=== PATIENT | female | born 1995 | race Hispanic/Latino ===

== ENCOUNTER 2016-09-23 07:03 | Inpatient (IN) | payer OTHER ==
[~2016-09-23] VITALS: Ht 160 cm; Wt 74.4 kg
[~2016-09-23 07:03] MED LIST: POTA10TA PO
[2016-09-23] MEDS ORDERED: Oxytocin 30 Units/500 mL LR 30 UNITS in IV Premix 1 EACH IV PRN ×2 (07:25→12:00)
[2016-09-23] MEDS ORDERED: Carboprost 250 mCg/mL Inj IM PRN ×2 (07:25→12:00)
[2016-09-23] MEDS ORDERED: fentaNYL-PF 50 mCg/mL 2 mL Inj IVPUSH PRN (07:25)
[2016-09-23] MEDS ORDERED: Sodium Chloride LOK Flush 10 mL Syringe IVFLUSH PRN (07:25)
[2016-09-23] MEDS ORDERED: Ondansetron 2 mg/mL 2 mL Inj IVPUSH PRN ×2 (07:25→08:00)
[2016-09-23] MEDS ORDERED: Methylergonovine 0.2 mg/mL Inj IM PRN ×2 (07:25→12:00)
[2016-09-23] MEDS ORDERED: Hemorrhage Kit, Post Partum XX ONE ×2 (07:25→12:00)
[2016-09-23] MEDS ORDERED: Oxytocin 10 Unit/mL Inj IM PRN ×2 (07:25→12:00)
[2016-09-23 07:56] LABS: Mean Corpuscular Hemoglobin 28.2 pg (27.0-35.0); Mean Corpuscular Volume 86.7 fL (81-100)
[2016-09-23] MEDS ORDERED: Lactated Ringer's 500 ML IV ONE (07:56)
[2016-09-23] MEDS: Lactated Ringer's 1,000 ML IV SCH ×5 (07:56→23:56)
[2016-09-23] MEDS ORDERED: EPHEDrine Sulfate 50 mg/mL Inj IVPUSH PRN (08:00)
[2016-09-23] MEDS ORDERED: fentaNYL 2 mCg/mL-Bupiv 0.125% 100 ML EPIDURAL SCH (08:00)
[2016-09-23] MEDS ORDERED: Atropine 1 mg/10 mL (Code) Syringe IVPUSH PRN (08:00)
[2016-09-23] MEDS: Sodium Chloride LOK Flush 10 mL Syringe IVFLUSH SCH ×2 (08:30→16:30)
--- NOTE | 2016-09-23 08:51 | PCM.HPANE ---
Patient Data Surgeon Admitting Provider:Cami Payne MD Attending Provider:Cami Payne MD Primary Care Physician:Cami Payne MD Other Provider:Damian Wilson Anesthesia Reason for Visit Term Labor TERM LABOR Ht/WT & BMI Body Mass Index Allergies Coded Allergies: No Known Allergies (Unverified , 09/23/16) Medications Active Scripts Potassium Chloride ER (K-Tab)10 Meq [id number] Meq PO BID #30 TABLET Ref 0 Prov:Cami Payne MD 08/22/16 History Smoking Status: Never Smoker Stop/Bang Risk Assessment Category Category 1A: Patient has history of documented sleep apnea, and HAS NOT received any narcotic, sedative or anesthesia administration during this stay. Category 1B: Patient has history of documented sleep apnea, and HAS received any narcotic , sedative or anesthesia administration during this stay Category 2: Patient has SUSPECTED Obstructive Sleep Apnea, and HAS received any narcotic , sedative or anesthesia administration during this stay. Category 3: Patient has SUSPECTED Obstructive Sleep Apnea and HAS NOT received narcotic, sedative or anesthesia administration during this stay. Category 4: Outpatient in Procedural Areas with known sleep apnea or who screen positive for High Risk via the STOP/BANG questionnaire. Exam Exam General Appearance: Alert, Oriented X3, Cooperative, No Acute Distress HEENT/AIRWAY: MP 3, Mouth Opening (small) Lungs: Clear to Auscultation Heart: Exam Unremarkable Meds/Labs/Diagnostics Labs Test 09/23/16 07:40 Plan Impression Patient chart reviewed, patient interviewed and anesthestic plan with risks, benefits, and alternatives discussed, and informed consent obtained. ASA Physical Status: ASA2 Mod Systemic Disease Anesthetic Plan: Epidural Bene/Risks/Altern/Consents: Yes (via artificial intelligence specialist) HP Complete Prior to Induction: Yes Landry Velasquez MD Sep 23, 2016 07:56
[2016-09-23] MEDS: Lactated Ringer's 1,000 ML IV PRN ×2 (09:35→09:36)
--- NOTE | 2016-09-23 15:10 | HP ---
[address] [address] HISTORY AND PHYSICAL PATIENT: JARED CUENCA : 1995 MR#: [id number] ADMIT: 09/23/2016 JOB ID: [id number] HISTORY OF PRESENT ILLNESS: This is a 20-year-old female. She is 2, para 1, at 40 weeks . She presents to [facility] for active labor. She was south every 2-3 minutes. The heart tracing was category 1. She was examined that she was 6 cm dilated with bulging membranes. No leaking of fluid. This is a patient having routine care at [facility]. She declined allergy to medications. PAST MEDICAL HISTORY: She declined. PAST SURGICAL HISTORY: She declined. OBSTETRICAL HISTORY: She had one vaginal delivery which is a forceps delivery with a 9 pound plus baby. GYNECOLOGIC HISTORY: Was not complicated. SOCIAL HISTORY: She is not smoking. She does not drink alcohol and declined drug usage. PHYSICAL EXAMINATION: She is afebrile. Her vitals normal. Cardiac: RR, no murmur. Pulmonary: Bilaterally clear. Abdomen: Soft, , nontender. heart tracing category 1. She has regular contractions which she feels pain and require for epidural. Cervix examination was mentioned about 6 cm dilated with a bulging membrane. Extremities nontender. ASSESSMENT AND PLAN: A 20-year-old female, 2, para 1, at 40 weeks active labor. 1. We will admit her to [facility]. 2. She is GBS negative. No antibiotic needed for prophylaxis. 3. The patient asked for epidural. Will consult anesthesia for epidural. 4. The patient has a history of large baby and forceps delivery. 5. We will monitor labor progress and expect vaginal delivery.
[2016-09-23] MEDS ORDERED: Acetaminophen IV 1,000 mg IV ONE (18:45)
--- NOTE | 2016-09-23 18:51 | PCM.ANEP2 ---
Post Anesthesia Evaluation ASA/CMS Post Anesthesia VS in Patient's Normal Range?: Yes Resp Stable; Airway Patent?: Yes CV Function & Hydration Stable: Yes Mental Status Recovered?: Yes Pain control Satisfactory?: Yes N/V Control Satisfactory?: Yes Additional Comments Patient sitting up in bed smiling resting comfortably. No c/o of headache at this time. Landry Velasquez MD Sep 23, 2016 18:51
[2016-09-24] MEDS: Sodium Chloride LOK Flush 10 mL Syringe IVFLUSH SCH ×3 (00:30→16:30)
[2016-09-24] MEDS: Lactated Ringer's 1,000 ML IV SCH ×3 (04:00→12:00)
[2016-09-24 06:21] LABS: Mean Corpuscular Hemoglobin 28.5 pg (27.0-35.0); Mean Corpuscular Volume 87.8 fL (81-100)
[2016-09-24] MEDS ORDERED: oxyCODONE-Acetamin 5-325 mg Tablet PO PRN (11:00)
[2016-09-24] MEDS ORDERED: DOCU-41 PO (11:05)
[2016-09-24] MEDS ORDERED: FERR-83 PO (11:05)
[2016-09-24] MEDS ORDERED: ASCO250T7 PO (11:05)
[2016-09-24] MEDS ORDERED: OXYC1TAB24 PO (11:05)
[2016-09-24] MEDS ORDERED: IBUP-1827 PO (11:05)
--- NOTE | 2016-09-24 11:09 | PCM.DIOB ---
Obstetrical Disch Instruction Dates of Hospitalization Date of Hospital Admission Sep 23, 2016 at 07:16 Providers Admitting Physician: Cami Payne MD Primary Care Physician: Cami Payne MD Attending Physician: Cami Payne MD Additional Instructions Discharge Instructions Discharge diagnosis: Status post normal vaginal delivery Post Anemia Spinal Headache after epidural. Disposition: home. Discharge Condition: stable. Diet Discharge Diet: No restrictions Activity Discharge Activity-General: Pelvic Rest for 6 weeks, Be up and about, Balance rest and activity, No lifting >10 pounds for 4-6 weeks Dressing and Incisional Care Hygiene: May shower, Perineal care, Sitz bath Follow Up Plan Follow-up Provider (F9): Cami Payne MD Follow-up appointment: Weeks (2 ) or sooner if needed. Call your provider for: Fever or Chills, Shortness of breath, Heavy vaginal bleeding, Heavy bleeding, Epigastric pain, Excessive constipation, Vaginal discomfort, Red painful breasts, Other (headache, change in vision, leg swelling in one leg more than the other, change in color or painful legs. ) Cami Payne MD Sep 24, 2016 11:09
--- NOTE | 2016-09-24 11:13 | PCM.DC.OB ---
Obstetrical Discharge Summary Date of Service Sep 24, 2016 Date of hospital admission Sep 23, 2016 at 07:16 Date of Discharge: Sep 24, 2016 Providers Admitting Physician: Andrae Ly MD Primary Care Physician: Andrae Ly MD Attending Physician: Andrae Ly MD Hospital Course: Discharge diagnosis: Status post normal vaginal delivery Post Anemia Headache related to epidural. Problems: Hospital Course: Patient is a 20 year old female G 2now P2002 was admitted at weeks day for active labor. Status post normal vaginal delivery on 09/23/16, see delivery note for details. COMPLICATED WITH: 1. History of forceps assisted vaginal delivery in first . OUTCOME: Male infant, apgars 9 and 10 at 1 and 5 minutes respectively. Weight 3603 ( 7lb 15oz) DISCHARGE DAY EXAM: day number 1, patient is ambulating, tolerating regular diet without nausea or vomiting and voiding without difficulty. Pain was well controlled. No chest pain, no change in vision. Headache when setting up , improves with lying down and with pain medications. VS: reviewed and stable. 104/62, 83, 17, 36.6 General: Alert, Oriented X3 Lungs: Clear to Auscultation, Clear to Percussion Heart: Regular Rate/Rhythm, Normal S1, Normal S2 Abdomen: Fundus firm Extremities: No tenderness/swelling, Edema 1+ Lochia: normal. LABS: Laboratory Tests 72 Hours Test 09/23/16 07:40 09/24/16 06:00 White Blood Count 6.9th/mm3 (3.8-10.1) 8.8th/mm3 (3.8-10.1) Red Blood Count 4.29mil/mm3 (3.90-5.20) 3.68mil/mm3 (3.90-5.20) Hemoglobin 12.1g/dL (12.0-15.6) 10.5g/dL (12.0-15.6) Hematocrit 37.2% (35.0-46.0) 32.3% (35.0-46.0) Mean Corpuscular Volume 86.7fL (81-100) 87.8fL (81-100) Mean Corpuscular Hemoglobin 28.2pg (27.0-35.0) 28.5pg (27.0-35.0) Mean Corpuscular Hemoglobin Concent 32.5% (32.0-37.0) 32.5% (32.0-37.0) Red Cell Distribution Width 14.2% (12.3-15.4) 14.3% (12.3-15.4) Platelet Count 180bil/L (150-400) 167bil/L (150-400) labs: Apositive, Rubella immune, HIB (NR) , HepsAg (NR), RPR (NR), 1hr DM screen negatuve (99), Pap smear WNL 02/29/2016, GC/CT screen negative 02/29/2016, Quad screen negative. Disposition: home. Discharge Condition: stable. Diet Discharge Diet: No restrictions Activity Discharge Activity-General: Pelvic Rest for 6 weeks, Be up and about, Balance rest and activity, No lifting >10 pounds for 4-6 weeks Dressing and Incisional Care Hygiene: May shower, Perineal care, Sitz bath Follow Up Plan Follow-up Provider (F9): Andrae Ly MD Follow-up appointment: Weeks (2 ) or sooner if needed. Call your provider for: Fever or Chills, Shortness of breath, Heavy vaginal bleeding, Heavy bleeding, Epigastric pain, Excessive constipation, Vaginal discomfort, Red painful breasts, Other (headache, change in vision, leg swelling in one leg more than the other, change in color or painful legs. ) Ascorbic Acid (Vitamin C) 250 Mg Tab.chew 500 MG PO DAILY Prescribed by: ANDRAE LY MD Docusate Sodium (Colace) 100 Mg Capsule 100 MG PO DAILY Prescribed by: ANDRAE LY MD Ferrous Sulfate (Ferrous Sulfate) 325 Mg Tablet 325 MG PO DAILY Prescribed by: ANDRAE LY MD Ibuprofen (Ibuprofen) 600 Mg Tablet 600 MG PO Q6H PRN PRN For Mild Pain Prescribed by: ANDRAE LY MD Potassium Chloride ER (K-Tab) 10 Meq Tablet 10 MEQ PO BID Prescribed by: ANDRAE LY MD oxyCODONE-Acetaminophen 5-325 mg (oxyCODONE-Acetaminophen 5-325 mg) 1 Each Tablet 1 TAB PO Q4H PRN PRN For Pain Prescribed by: OMMD Elmer HAMM Omaima A MD Sep 24, 2016 11:13
[2016-09-24 17:32] VITALS: BP 109/85; PULSE 87; RESP 16
--- NOTE | 2016-09-24 17:38 | OP ---
[address] [address] OPERATIVE REPORT PATIENT: JARED CUENCA : 1995 MR#: [id number] ADMIT: 09/23/2016 JOB ID: [id number] DATE OF SURGERY: 09/23/2016 SURGEON: Janneth Clayton MD PREOPERATIVE DIAGNOSIS(ES): POSTOPERATIVE DIAGNOSIS(ES): This is a 30-year-old female, she is 2, para 2 now, at 40 weeks presented to [facility] for active labor. She was admitted when she was 6 cm dilated with bulging membranes, category one tracing. She got epidural for pain management which is controlling her pain well. I examined her after the epidural and it was noted she was 9.5 cm dilated, with bulging membranes. Artificial rupture of membrane was performed with clear fluid. At that time, it was noted she was LOP position with category one tracing and at that time plan was observe progress of labor. The patient had regular contractions and reassuring heart tracing and she progressed to full dilation and had good urge to push. She had a good effort to push and eventually the baby delivered at OCTAVIA position. There was one nuchal cord which was loose and did not need cut or reduce. There was presenting part at delivery of the head together with her left hand. Then shoulder and chest delivered without difficulty. The was placed on mother's chest. Delayed cord clamping was performed after the pulsation disappeared about 1 minute after delivery. Regular cord blood collected. Placenta delivered spontaneously completely and examined with a three-vessel cord. The uterus well contracted after delivery of the placenta. The perineum examined with no laceration. The EBL during the delivery was 200 cc. The scores were 9 and 9. The weight was not available at dictation. MTDD
--- NOTE | 2016-09-24 20:51 | PROCED ---
[address] [address] PROCEDURE NOTE PATIENT: JARED CUENCA : 1995 MR#: [id number] ADMIT: 09/23/2016 JOB ID: [id number] DATE OF SERVICE: PREOPERATIVE DIAGNOSIS(ES): POSTOPERATIVE DIAGNOSIS(ES): SURGEON: Kyle Austin MD. PROCEDURE: Epidural blood patch. INDICATION: Postdural puncture headache following epidural. COMPLICATIONS: None. PROCEDURE NOTE: The patient was evaluated this a.m. following an uncomplicated epidural placement yesterday that resulted in a spontaneous vaginal . The patient reported a headache yesterday and was evaluated by one of my partners, who felt that the headache did not have a strong postural component and most likely not a dural puncture headache given that there was no known dural puncture during the procedure. I evaluated the patient this morning. She complained of a headache that was postural in nature in the front of her head. We decided to try some oral medication and watch it and it did not resolve, and so I consented her for an epidural blood patch. The patient was positioned in the sitting position. The back was sterilely prepped with chlorhexidine gluconate and draped in a sterile fashion. The site of the previous epidural placement was easily identified. Area was injected with local anesthetic. Then, a 17-gauge, Tuohy needle was advanced with crisp loss of resistance at approximately 4 cm. There was no clear evidence of CSF return at that point. With the assistance of a nurse then, 20 cc total of blood was sterilely drawn from an existing IV in the right AC. This was injected in aliquots as tolerated by the patient. Total volume that she was able to tolerate was about 18 mm of blood. At this point, she complained of back pain and pain in the hips radiating around to her abdomen. The needle was re-styletted and the needle was withdrawn. The patient was placed in the supine position and reported that her headache was much improved. The patient and nurse were instructed to have the patient remain supine or on her side but in a flat position for 30 minutes post procedure. At that point, she can sit up and should be appropriate for discharge to home. I also instructed the patient and her that if they go home and have a repeat of this headache that they are welcome to return to the [facility], where they can be evaluated by an anesthesiologist again. PROCEDURE: Epidural blood patch. COMPLICATIONS: None. The result was improvement of headache.
== END 2016-09-24 18:45 | disposition home or self-care (01) | DRG 775 ==
LOC: FBCO 07:03 → FBC 07:16
PROVIDERS: ADMIT Obstetrics & Gynecology; ATTEND Obstetrics & Gynecology
PROC: 10E0XZZ Delivery of Products of Conception, External Approach (ICD-10-PCS; principal; 2016-09-23)
PROC: 10907ZC Drainage of Amniotic Fluid, Therapeutic from Products of Conception, Via Natural or Artificial Opening (ICD-10-PCS; 2016-09-23)
PROC: 3E0R3GC Introduction of Other Therapeutic Substance into Spinal Canal, Percutaneous Approach (ICD-10-PCS; 2016-09-24)
DX: O69.2XX0 Labor and delivery complicated by other cord entanglement, with compression, not applicable or unspecified (principal); Z37.0 Single live birth; G97.1 Other reaction to spinal and lumbar puncture; Z3A.40 40 weeks gestation of pregnancy